=== PATIENT | female | born 1960 | race Caucasian/White ===

== ENCOUNTER 2020-09-18 15:56 | Emergency (ER) | payer BC, SELFPAY ==
--- NOTE | 2020-09-18 16:05 | ED.PSYCH ---
HPI - Psych General Chief Complaint: ETOH/Substance Use Stated Complaint: ETOH,SI Time Seen by Provider: 09/18/20 16:05 Source: patient Mode of arrival: ambulatory Limitations: no limitations and altered mental status (ETOH intoxication) History of Present Illness MD complaint: suicidal ideation, feels depressed and alcohol abuse Onset (ago): hour(s) Duration: intermittent History of same: Yes Relieving factors: none Exacerbating factors: alcohol Context: recent alcohol abuse Associated psychiatric symptoms: depression and suicidal ideation Associated symptoms: denies other symptoms Treatments prior to arrival: none Related Data Allergies Allergy/AdvReac Type Severity Reaction Status Date / Time codeine [CODEINE] Allergy Unknown RASH Unverified 01/15/20 15:40 Penicillins [PENICILLINS] Allergy Unknown RASH Unverified 01/15/20 15:40 Review of Systems Review of Systems: ROS unable to be obtained due to intoxication and patient won't answer questions PMFSH Past Medical History Attestation statement: The following information was validated with the patient. Medical History Alcohol abuse Social History Social History (Updated 09/18/20 @ 16:18 by Tammy Anders DO) Alcohol intake: current Smoking Status: Current every day smoker Advance Directives: No Advance Directives Information Provided: Yes Physical Exam Vital Signs: Vital Signs: Last Vital Signs Temp 97.8 F 09/18/20 16:17 Pulse 92 09/18/20 16:17 Resp 18 09/18/20 16:17 BP 127/70 09/18/20 16:17 Pulse Ox 94 09/18/20 16:17 Body Mass Index 23.0 Appearance: Alert. Oriented X3. ETOH odor, slurred speech Eyes: Pupils equal, round and reactive to light. Atraumatic ENT: Pharynx normal. Neck: Normal inspection. Neck supple. CVS: Normal heart rate and rhythm. Pulses normal. Respiratory: No respiratory distress. Breath sounds normal. Abdomen: Soft and non-tender. Skin: Skin warm and dry. Normal skin color. Normal skin turgor. Extremities: No lower extremity edema. No calf ttp Neuro: Oriented X 3. No motor deficit. No sensory deficit. Psych: no SI/HI but states she made statements cause I was drinking, I do this all the time. Course Course Course Narrative: son is here he lives with her he has no concerns states these claims were made by his sister whom his mother is estranged from and that this was a huge mistake and his mom does not suffer from mental illness and he has no concerns for SI MDM - Psych MDM Narrative Medical decision making narrative: 60 yo female with ETOH use comes in with c/o intoxication and made statements of self harm, denies a plan and does not feel suicidial she states that she has said this before when drinking and was taken out of context, on section 12, at this time will obtain CARE team consult, no signs of trauma likely related to ETOH abuse no prior inpatient no prior attempts adamantly denies SI Lab Data Result diagrams: 09/18/20 17:33 09/18/20 17:33 Labs: Lab Results 09/18/20 09/18/20 09/18/20 Range/Units 17:33 17:33 17:33 WBC 12.6 H (4.8-10.8) X10*3/uL RBC 4.60 (4.20-5.50) X10*6/uL Hgb 14.1 (12.0-16.0) g/dl Hct 42.0 (37-47) % MCV 91.3 (80-98) fL MCH 30.7 (27.0-33.0) pg MCHC 33.6 (31.0-35.0) g/dl RDW 12.8 (11.0-16.0) % Plt Count 321 (160-400) X10*3/uL MPV 9.5 (9.4-12.3) fL Immature Gran % (Auto) 0.4 (0.0-0.4) % Neut % (Auto) 82.7 H (45-73) % Lymph % (Auto) 11.8 L (20-40) % [place] % (Auto) 3.7 (2-11) % Eos % (Auto) 0.6 (0-4) % Baso % (Auto) 0.8 (0-2) % Lymph # (Auto) 1.5 (1.2-4.9) X10*3/uL [place] # (Auto) 0.5 (0.1-1.2) X10*3/uL Eos # (Auto) 0.1 (0.0-0.4) X10*3/uL Baso # (Auto) 0.1 (0.0-0.2) X10*3/uL Abs Immat Gran (auto) 0.05 H (0.00-0.03) X10*3/uL Absolute Neuts (auto) 10.5 H (2.0-8.3) X10*3/uL Absolute Nucleated RBC 0.000 (0.0-0.012) X10*3/uL Nucleated RBC % (auto) 0.0 (0.0-0.2) /100WBC Sodium 142 (135-145) mmol/L Potassium 4.1 (3.3-5.1) mmol/L Chloride 106 (96-108) mmol/L Carbon Dioxide 26 (22-29) mmol/L Anion Gap 14 (12-20) BUN 13 (9-16) mg/dL Creatinine 0.72 (0.5-1.4) mg/dL Estim Creat Clear Calc 58.9 Estimated GFR > 60 Random Glucose 141 H (60-115) mg/dL Calcium 9.2 (8.4-10.2) mg/dL Total Bilirubin 0.4 (0.0-1.0) mg/dL Direct Bilirubin < 0.2 (0.0-0.5) mg/dL AST 22 (5-31) U/L ALT 13 (0-31) U/L Alkaline Phosphatase 91 (39-117) U/L Total Protein 7.5 (6.5-8.0) g/dL Albumin 4.5 (3.5-5.0) g/dL Urine Opiates Screen (Not Detect) Ur Barbiturates Screen (Not Detect) Ur Phencyclidine Scrn (Not Detect) Ur Amphetamines Screen (Not Detect) U Benzodiazepines Scrn (Not Detect) Urine Cocaine Screen (Not Detect) U Marijuana (THC) Screen (Not Detect) Ethyl Alcohol 281 mg/dL 09/18/20 Range/Units 17:33 WBC (4.8-10.8) X10*3/uL RBC (4.20-5.50) X10*6/uL Hgb (12.0-16.0) g/dl Hct (37-47) % MCV (80-98) fL MCH (27.0-33.0) pg MCHC (31.0-35.0) g/dl RDW (11.0-16.0) % Plt Count (160-400) X10*3/uL MPV (9.4-12.3) fL Immature Gran % (Auto) (0.0-0.4) % Neut % (Auto) (45-73) % Lymph % (Auto) (20-40) % [place] % (Auto) (2-11) % Eos % (Auto) (0-4) % Baso % (Auto) (0-2) % Lymph # (Auto) (1.2-4.9) X10*3/uL [place] # (Auto) (0.1-1.2) X10*3/uL Eos # (Auto) (0.0-0.4) X10*3/uL Baso # (Auto) (0.0-0.2) X10*3/uL Abs Immat Gran (auto) (0.00-0.03) X10*3/uL Absolute Neuts (auto) (2.0-8.3) X10*3/uL Absolute Nucleated RBC (0.0-0.012) X10*3/uL Nucleated RBC % (auto) (0.0-0.2) /100WBC Sodium (135-145) mmol/L Potassium (3.3-5.1) mmol/L Chloride (96-108) mmol/L Carbon Dioxide (22-29) mmol/L Anion Gap (12-20) BUN (9-16) mg/dL Creatinine (0.5-1.4) mg/dL Estim Creat Clear Calc Estimated GFR Random Glucose (60-115) mg/dL Calcium (8.4-10.2) mg/dL Total Bilirubin (0.0-1.0) mg/dL Direct Bilirubin (0.0-0.5) mg/dL AST (5-31) U/L ALT (0-31) U/L Alkaline Phosphatase (39-117) U/L Total Protein (6.5-8.0) g/dL Albumin (3.5-5.0) g/dL Urine Opiates Screen Not Detected (Not Detect) Ur Barbiturates Screen Not Detected (Not Detect) Ur Phencyclidine Scrn Not Detected (Not Detect) Ur Amphetamines Screen Not Detected (Not Detect) U Benzodiazepines Scrn Not Detected (Not Detect) Urine Cocaine Screen Not Detected (Not Detect) U Marijuana (THC) Screen Not Detected (Not Detect) Ethyl Alcohol mg/dL Discharge Plan Discharge Clinical Impression: Alcoholic intoxication Qualifiers: Complication of substance-induced condition: uncomplicated Qualified Code(s): F10.920 - Alcohol use, unspecified with intoxication, uncomplicated Patient Disposition: Home, Self-Care Instructions: Abuse of Alcohol (ED) Additional Instructions: return to ED for any worsening symptoms or concerns
[2020-09-18 16:17] VITALS: BP 127/70; BP 139/89; PULSE 76; PULSE 92; RESP 18; TEMP 36.6; O2SAT 94; BMI 23.0
--- NOTE | 2020-09-18 17:09 | PC.NURSE ---
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
[2020-09-18 17:45] LABS: MANUAL DIFF FLAG NO
[2020-09-18 17:52] LABS: Basophils Absolute Auto 0.1 X10*3/uL (0.0-0.2); Basophils Percent Auto 0.8 % (0-2); Eosinophils Absolute Auto 0.1 X10*3/uL (0.0-0.4); Eosinophils Percent Auto 0.6 % (0-4); Hemoglobin 14.1 g/dl (12.0-16.0); Imm Gran Abs Auto 0.05 X10*3/uL (0.00-0.03); Imm Gran Pct Auto 0.4 % (0.0-0.4); Lymphocytes Absolute Auto 1.5 X10*3/uL (1.2-4.9); Lymphocytes Percent Auto 11.8 % (20-40); Mean Corpuscular HGB Conc 33.6 g/dl (31.0-35.0); Mean Corpuscular Hemoglobin 30.7 pg (27.0-33.0); Mean Corpuscular Volume 91.3 fL (80-98); Mean Platelet Volume 9.5 fL (9.4-12.3); Monocytes Absolute Auto 0.5 X10*3/uL (0.1-1.2); Monocytes Percent Auto 3.7 % (2-11); Neutrophils Absolute Auto 10.5 X10*3/uL (2.0-8.3); Neutrophils Percent Auto 82.7 % (45-73); Platelet Count 321 X10*3/uL (160-400); Red Cell Distribution Width 12.8 % (11.0-16.0); White Blood Count 12.6 X10*3/uL (4.8-10.8)
[2020-09-18 18:07] LABS: Amphetamine Screen Urine Not Detected (Not Detect); Barbiturates, Urine Not Detected (Not Detect); Benzodiazepines Screen Urine Not Detected (Not Detect); Cannabinoid Screen Urine Not Detected (Not Detect); Cocaine Screen Urine Not Detected (Not Detect); Opiate Screen Urine Not Detected (Not Detect); Phencyclidine Screen Urine Not Detected (Not Detect)
[2020-09-18 18:08] LABS: Ethanol 281 mg/dL
[2020-09-18 18:11] LABS: Alanine Aminotransferase 13 U/L (0-31); Albumin Level 4.5 g/dL (3.5-5.0); Alkaline Phosphatase 91 U/L (39-117); Anion Gap 14 (12-20); Aspartate Amino Transferase 22 U/L (5-31); Bilirubin Direct < 0.2 mg/dL (0.0-0.5); Bilirubin Total 0.4 mg/dL (0.0-1.0); Blood Urea Nitrogen 13 mg/dL (9-16); Calcium 9.2 mg/dL (8.4-10.2); Carbon Dioxide 26 mmol/L (22-29); Chloride 106 mmol/L (96-108); Creatinine Clr Calc Pharmacy 58.9; Estimated Glomerular Filt Rate > 60; Glucose Random 141 mg/dL (60-115); Potassium 4.1 mmol/L (3.3-5.1); Sodium 142 mmol/L (135-145); Total Protein 7.5 g/dL (6.5-8.0)
== END 2020-09-18 19:14 | disposition home or self-care (01) ==
PROVIDERS: Emergency Provider Emergency Medicine
DX: F10.120 Alcohol abuse with intoxication, uncomplicated (principal); Y90.8 Blood alcohol level of 240 mg/100 ml or more; R45.851 Suicidal ideations; F32.9 Major depressive disorder, single episode, unspecified; F17.210 Nicotine dependence, cigarettes, uncomplicated
CPT/HCPCS: 36415; 80048; 80076; 80307; 80320; 85025; 99284

== ENCOUNTER 2022-04-25 18:16 | Day surgery (SDC) | payer BC, SELFPAY ==
--- NOTE | ~2022-04-25 | US_ITS ---
EXAMINATION: US PELVIS CLINICAL INFORMATION: Right lower quadrant pain. Question cyst or torsion COMPARISON: None TECHNIQUE: Ultrasound of the pelvis is performed using both transabdominal and transvaginal transducers along with Doppler. Transvaginal imaging is performed due to inadequate visualization transabdominally. FINDINGS: Uterus: The uterus is retroverted and measures 4.5 x 3 x 3.2 cm. The double wall endometrial thickness is 0.2 mm. The uterus is smooth in contour and has normal myometrial echogenicity. No visible fibroid. Adnexa: Both ovaries are visualized. There is normal color flow to the adnexa. There is no ovarian torsion. There is no pelvic ascites or fluid collection. Right ovary measures 2 x 1.2 x 0.9 cm, volume 1.1 mL. Dopplerable arterial flow. No venous flow demonstrated. Left ovary measures 1.2 x 0.7 x 0.7 cm, volume 0.3 mL.Normal dopplerable venous flow. Arterial flow not demonstrated. US/US pelvic ovarian doppler IMPRESSION: 1. No evidence of ovarian torsion. No adnexal cyst/mass. 2. Unremarkable uterus. 3. Thin endometrial stripe measuring 2 mm in thickness. 4. No pelvic free fluid.
--- NOTE | ~2022-04-25 | US_ITS ---
EXAMINATION: US PELVIS CLINICAL INFORMATION: Right lower quadrant pain. Question cyst or torsion COMPARISON: None TECHNIQUE: Ultrasound of the pelvis is performed using both transabdominal and transvaginal transducers along with Doppler. Transvaginal imaging is performed due to inadequate visualization transabdominally. FINDINGS: Uterus: The uterus is retroverted and measures 4.5 x 3 x 3.2 cm. The double wall endometrial thickness is 0.2 mm. The uterus is smooth in contour and has normal myometrial echogenicity. No visible fibroid. Adnexa: Both ovaries are visualized. There is normal color flow to the adnexa. There is no ovarian torsion. There is no pelvic ascites or fluid collection. Right ovary measures 2 x 1.2 x 0.9 cm, volume 1.1 mL. Dopplerable arterial flow. No venous flow demonstrated. Left ovary measures 1.2 x 0.7 x 0.7 cm, volume 0.3 mL.Normal dopplerable venous flow. Arterial flow not demonstrated. US/US pelvic and transvaginal IMPRESSION: 1. No evidence of ovarian torsion. No adnexal cyst/mass. 2. Unremarkable uterus. 3. Thin endometrial stripe measuring 2 mm in thickness. 4. No pelvic free fluid.
--- NOTE | ~2022-04-25 | XR_ITS ---
EXAMINATION: XR CHEST CLINICAL INFORMATION: Preop COMPARISON: None TECHNIQUE: Frontal view of the chest was obtained. FINDINGS: Normal symmetric lung volumes. No parenchymal consolidation. Biapical pleural-parenchymal scarring. No pleural effusion. No pneumothorax. Cardiomediastinal silhouette and pulmonary vascularity are within normal limits. Mildly angulated fracture of the right proximal humeral diaphysis, incompletely imaged. XR/XR chest 1V IMPRESSION: No acute pulmonary abnormalities. Mildly angulated fracture or fracture deformity of the proximal right humerus, incompletely characterized.
--- NOTE | ~2022-04-25 | CT_ITS ---
EXAMINATION: CT ABDOMEN AND PELVIS WITH CONTRAST CLINICAL INFORMATION: Right lower quadrant pain COMPARISON: 03/22/2009 TECHNIQUE: Multidetector volumetric images were obtained from the superior aspect of the liver through the pubic symphysis following administration 85 mL of Omnipaque 350 intravenous contrast. Sagittal and coronal reformatted images were obtained on the technologist's workstation. Oral contrast: No This CT examination was performed using dose optimization techniques as appropriate, variously including the following: *Automated exposure control *Adjustment of mA and/or kV according to patient size (this includes techniques or standardized protocols for targeted exams where dose is matched to indication/reason for exam; i.e. extremities or head) *Use of iterative reconstruction technique DLP: 302 mGy-cm FINDINGS: LUNG BASES: Mild emphysema. LIVER, GALLBLADDER, AND BILIARY TREE: The liver is normal in size, shape, and attenuation. No focal hepatic lesion or biliary ductal dilatation is present. The gallbladder is unremarkable with no evidence of radiopaque gallstones, gallbladder wall thickening, or obvious pericholecystic inflammatory changes. PANCREAS: Prominent duodenal diverticulum protrudes into the pancreatic head. This may be causing a degree of compression of the distal main pancreatic duct with resultant upstream dilatation measuring up to 6 mm. No pancreatic mass or inflammation. SPLEEN: Unremarkable. ADRENAL GLANDS: Unremarkable. KIDNEYS AND URETERS: The kidneys are normal in size, shape, and attenuation. No hydronephrosis, hydroureter, or calculi seen. There are couple bilateral simple renal cysts. No follow-up required. No perinephric stranding. BLADDER: Unremarkable. GASTROINTESTINAL TRACT /ABDOMINAL WALL:: There is a right femoral hernia containing a knuckle of small bowel with associated mild upstream dilatation of the single loop of small bowel. Small amount of fluid inferior to the herniated loop of small bowel. Stomach and colon unremarkable. Normal appendix. LYMPH NODES: Normal. VASCULAR: Unremarkable. PELVIC VISCERA: Unremarkable. OSSEOUS STRUCTURES: No acute or suspicious osseous abnormalities. CT/CT abdomen pelvis w IV con IMPRESSION: * Right femoral hernia containing a knuckle of small bowel with associated small bowel obstruction. While the majority of the bowel is not dilated at this time, this may just represent an early high-grade small bowel obstruction. Surgical consultation recommended. * Mild emphysema. * Mild segmental dilatation of the main pancreatic duct, likely related to mass effect from a prominent duodenal diverticulum protruding into the pancreatic head. No pancreatic mass or inflammation. Fleischner guidelines were followed.
[2022-04-25 19:33] VITALS: BP 153/114; PULSE 105; RESP 18; TEMP 36.9; O2SAT 96; BMI 20.1
--- NOTE | 2022-04-25 19:35 | ED_ITS ---
HPI - General Adult General Chief complaint: Abdominal Pain <EUGENIE Ricks - Last Filed: 04/25/22 19:36> Stated complaint: Lower abdominal sharp pain <EUGENIE Ricks - Last Filed: 04/25/22 19:36> Time Seen by Provider: 04/26/22 00:27 <EUGENIE Ricks - Last Filed: 04/25/22 19:36> Source: patient <Enio Cain MD - Last Filed: 04/26/22 02:15> Mode of arrival: ambulatory <Enio Cain MD - Last Filed: 04/26/22 02:15> Limitations: no limitations <Enio Cain MD - Last Filed: 04/26/22 02:15> History of Present Illness HPI narrative: Patient with no significant past medical history status post multiple C- sections was driving suddenly patient coughed and noticed pain in the right groin area with swelling associated with nausea. Feels slightly bloated patient last meal was at noon time. No history of hernia in the past no fever or chills <Enio Cain MD - Last Filed: 04/26/22 02:15> Related Data Home medications: Home Medications Medication Instructions Recorded Confirmed ibuprofen 200 mg capsule 800 mg PO Q6H 03/23/21 Previous Rx's Medication Instructions Recorded cyclobenzaprine 5 mg tablet 5 mg PO TID PRN muscle spasm #21 03/23/21 tabs meloxicam 15 mg tablet 15 mg PO DAILY #7 tabs 03/23/21 <EUGENIE Ricks - Last Filed: 04/25/22 19:36> Allergies/adverse reactions: Allergies Allergy/AdvReac Type Severity Reaction Status Date / Time codeine [CODEINE] Allergy Unknown RASH Verified 03/23/21 10:58 Penicillins [PENICILLINS] Allergy Unknown RASH Verified 03/23/21 10:58 <EUGENIE Ricks - Last Filed: 04/25/22 19:36> Review of Systems Review of Systems: Yes all other systems are reviewed and are negative <Enio Cain MD - Last Filed: 04/26/22 02:15> PMFSH Past Medical History Medical History: Medical History Alcohol abuse <EUGENIE Ricks - Last Filed: 04/25/22 19:36> Social History Social History: Social History Alcohol intake: current Patient Tobacco Use Status: Current everyday Tobacco user Advance Directives: No Advance Directives Information Provided: No <EUGENIE Ricks - Last Filed: 04/25/22 19:36> Physical Exam ED Vital Signs: Vital Signs - 24 hr 04/25/22 19:33 04/26/22 00:07 Temperature 98.4 F 98.1 F Pulse Rate 105 H 78 Respiratory Rate 18 20 Blood Pressure 153/114 H 140/74 H Pulse Oximetry 96 96 Oxygen Delivery Method Room Air Room Air BMI result Body Mass Index 20.1 <EUGENIE Ricks - Last Filed: 04/25/22 19:36> Vital Signs - 24 hr 04/25/22 19:33 04/26/22 00:07 Temperature 98.4 F 98.1 F Pulse Rate 105 H 78 Respiratory Rate 18 20 Blood Pressure 153/114 H 140/74 H Pulse Oximetry 96 96 Oxygen Delivery Method Room Air Room Air BMI result Body Mass Index 20.1 <Enio Cain MD - Last Filed: 04/26/22 02:15> Appearance: Alert. Oriented X3. In mild distress Eyes: No pallor icterus ENT: Pharynx normal. Oral Mucosa moist Neck: Normal inspection. Neck supple. CVS: Normal heart rate and rhythm. Pulses normal. Respiratory: No respiratory distress. Equal air entry bilateral, no wheezing/rales/rhonchi Abdomen: Soft small 2 x 2 cm swelling at right femoral area tender unable to reduce Bowel sounds are present, diffuse tenderness lower abdomen no rebound tenderness no CVA tenderness Skin: Skin warm and dry. Normal skin color. Normal skin turgor. Extremities: No lower extremity edema. No calf tenderness Neuro: Oriented X 3. No motor deficit. <Enio Cain MD - Last Filed: 04/26/22 02:15> Course Course Course Narrative: 193 61 year old female presents w/ sudden onset sharp RLQ/R sided pelvic pain Pe RLQ pain Plan- pelvic,ua, labs. <EUGENIE Ricks - Last Filed: 04/25/22 19:36> Medications Administered Generic Name Dose Route Start Last Admin Trade Name Freq PRN Reason Stop Dose Admin Sodium Chloride 1,000 mls @ 999 mls/hr 04/26/22 01:39 04/26/22 02:05 Ns IV 04/26/22 02:39 999 mls/hr .Q1H1M ONE Administration Discontinued Medications Generic Name Dose Route Start Last Admin Trade Name Freq PRN Reason Stop Dose Admin Iohexol 65 ml 04/25/22 19:48 04/25/22 19:49 Iohexol 350 Mg/Ml 100 Ml Infus..Btl IV 04/25/22 19:49 65 ml ONCE ONE Administration Iohexol 85 ml 04/26/22 00:37 04/26/22 00:37 Iohexol 350 Mg/Ml 100 Ml Infus..Btl IV 04/26/22 00:38 85 ml ONCE ONE Administration Morphine Sulfate 4 mg 04/26/22 01:39 04/26/22 02:02 Morphine Sulfate 4 Mg/Ml Cartridge IVPUSH 04/26/22 01:40 4 mg ONCE ONE Administration Protocol Ondansetron HCl 4 mg 04/26/22 01:39 04/26/22 02:02 Ondansetron Hcl 4 Mg/2 Ml Vial IVPUSH 04/26/22 01:40 4 mg ONCE ONE Administration <EUGENIE Ricks - Last Filed: 04/25/22 19:36> Medications Administered Generic Name Dose Route Start Last Admin Trade Name Freq PRN Reason Stop Dose Admin Sodium Chloride 1,000 mls @ 999 mls/hr 04/26/22 01:39 04/26/22 02:05 Ns IV 04/26/22 02:39 999 mls/hr .Q1H1M ONE Administration Discontinued Medications Generic Name Dose Route Start Last Admin Trade Name Freq PRN Reason Stop Dose Admin Iohexol 65 ml 04/25/22 19:48 04/25/22 19:49 Iohexol 350 Mg/Ml 100 Ml Infus..Btl IV 04/25/22 19:49 65 ml ONCE ONE Administration Iohexol 85 ml 04/26/22 00:37 04/26/22 00:37 Iohexol 350 Mg/Ml 100 Ml Infus..Btl IV 04/26/22 00:38 85 ml ONCE ONE Administration Morphine Sulfate 4 mg 04/26/22 01:39 04/26/22 02:02 Morphine Sulfate 4 Mg/Ml Cartridge IVPUSH 04/26/22 01:40 4 mg ONCE ONE Administration Protocol Ondansetron HCl 4 mg 04/26/22 01:39 04/26/22 02:02 Ondansetron Hcl 4 Mg/2 Ml Vial IVPUSH 04/26/22 01:40 4 mg ONCE ONE Administration <Enio Cain MD - Last Filed: 04/26/22 02:15> Medical Decision Making Medical Decision Making [facility] Narrative: Ct scan: *? Right femoral hernia containing a knuckle of small bowel with associated small bowel obstruction. While the majority of the bowel is not dilated at this time, this may just represent an early high-grade small bowel obstruction. Surgical consultation recommended. *? Mild emphysema. *? Mild segmental dilatation of the main pancreatic duct, likely related to mass effect from a prominent duodenal diverticulum protruding into the pancreatic head. No pancreatic mass or inflammation. Patient with right femoral hernia with small bowel loop causing the SBO. Will admit patient for surgery. Case discussed Dr. Woodson <Enio Cain MD - Last Filed: 04/26/22 02:15> Differential Diagnosis Femoral/inguinal hernia/appendicitis/diverticulitis/SBO <Enio Cain MD - Last Filed: 04/26/22 02:15> Lab Data [facility] Lab Attestation statement: I reviewed the patient's lab results. <Enio Cain MD - Last Filed: 04/26/22 02:15> Result Diagrams: : 04/25/22 20:18 04/25/22 20:18 <EUGENIE Ricks - Last Filed: 04/25/22 19:36> Labs: Lab Results 04/25/22 04/25/22 04/26/22 Range/Units 20:18 20:18 00:24 WBC 9.7 (4.8-10.8) X10*3/uL RBC 4.56 (4.20-5.50) X10*6/uL Hgb 14.0 (12.0-16.0) g/dl Hct 41.5 (37.0-47.0) % MCV 91.0 (80.0-98.0) fL MCH 30.7 (27.0-33.0) pg MCHC 33.7 (31.0-35.0) g/dl RDW 12.4 (11.0-16.0) % Plt Count 304 (160-400) X10*3/uL MPV 9.5 (9.4-12.3) fL Immature Gran % (Auto) 0.2 (0.0-0.4) % Neut % (Auto) 71.5 (45-73) % Lymph % (Auto) 20.3 (20-40) % [place] % (Auto) 6.0 (2-11) % Eos % (Auto) 1.3 (0-4) % Baso % (Auto) 0.7 (0-2) % Lymph # (Auto) 2.0 (1.2-4.9) X10*3/uL [place] # (Auto) 0.6 (0.1-1.2) X10*3/uL Eos # (Auto) 0.1 (0.0-0.4) X10*3/uL Baso # (Auto) 0.1 (0.0-0.2) X10*3/uL Abs Immat Gran (auto) 0.02 (0.00-0.03) X10*3/uL Absolute Neuts (auto) 7.0 (2.0-8.3) x10*3/uL Absolute Nucleated RBC 0.000 (0.0-0.012) X10*3/uL Nucleated RBC % (auto) 0.0 (0.0-0.2) /100WBC Sodium 139 (135-145) mmol/L Potassium 4.1 (3.3-5.1) mmol/L Chloride 103 (96-108) mmol/L Carbon Dioxide 26 (22-29) mmol/L Anion Gap 14 (12-20) BUN 19 H (9-16) mg/dL Creatinine 0.80 (0.5-1.4) mg/dL Estim Creat Clear Calc 57.4 Estimated GFR > 60 Random Glucose 98 (60-115) mg/dL Calcium 9.6 (8.4-10.2) mg/dL Magnesium 1.7 (1.6-2.6) mg/dL Total Bilirubin 0.4 (0.0-1.0) mg/dL AST 24 (5-31) U/L ALT 14 (0-31) U/L Alkaline Phosphatase 85 (39-117) U/L Total Protein 7.3 (6.5-8.0) g/dL Albumin 4.6 (3.5-5.0) g/dL Lipase 50 (8-78) U/L Urine Color Yellow Urine Appearance Clear Urine pH 5.0 (5.0-9.0) Ur Specific [place] 1.020 (1.005-1.025) Urine Protein Negative (Neg-Trace) mg/dL Urine Glucose (UA) Negative (Negative) mg/dL Urine Ketones 15 (Negative) mg/dL Urine Blood Trace H (Negative) Urine Nitrite Negative (Negative) Ur Leukocyte Esterase Small (1+) H (Negative) Urine RBC 0-2 (0-2) /HPF Urine WBC 0-5 (0-5) /HPF Ur Squamous Epith Cells 0-2 (0-2) /HPF Urine Bacteria None Seen (None Seen) Hyaline Casts 0-2 (0-2) /LPF <EUGENIE Ricks - Last Filed: 04/25/22 19:36> Lab Results 04/25/22 04/25/22 04/26/22 Range/Units 20:18 20:18 00:24 WBC 9.7 (4.8-10.8) X10*3/uL RBC 4.56 (4.20-5.50) X10*6/uL Hgb 14.0 (12.0-16.0) g/dl Hct 41.5 (37.0-47.0) % MCV 91.0 (80.0-98.0) fL MCH 30.7 (27.0-33.0) pg MCHC 33.7 (31.0-35.0) g/dl RDW 12.4 (11.0-16.0) % Plt Count 304 (160-400) X10*3/uL MPV 9.5 (9.4-12.3) fL Immature Gran % (Auto) 0.2 (0.0-0.4) % Neut % (Auto) 71.5 (45-73) % Lymph % (Auto) 20.3 (20-40) % [place] % (Auto) 6.0 (2-11) % Eos % (Auto) 1.3 (0-4) % Baso % (Auto) 0.7 (0-2) % Lymph # (Auto) 2.0 (1.2-4.9) X10*3/uL [place] # (Auto) 0.6 (0.1-1.2) X10*3/uL Eos # (Auto) 0.1 (0.0-0.4) X10*3/uL Baso # (Auto) 0.1 (0.0-0.2) X10*3/uL Abs Immat Gran (auto) 0.02 (0.00-0.03) X10*3/uL Absolute Neuts (auto) 7.0 (2.0-8.3) x10*3/uL Absolute Nucleated RBC 0.000 (0.0-0.012) X10*3/uL Nucleated RBC % (auto) 0.0 (0.0-0.2) /100WBC Sodium 139 (135-145) mmol/L Potassium 4.1 (3.3-5.1) mmol/L Chloride 103 (96-108) mmol/L Carbon Dioxide 26 (22-29) mmol/L Anion Gap 14 (12-20) BUN 19 H (9-16) mg/dL Creatinine 0.80 (0.5-1.4) mg/dL Estim Creat Clear Calc 57.4 Estimated GFR > 60 Random Glucose 98 (60-115) mg/dL Calcium 9.6 (8.4-10.2) mg/dL Magnesium 1.7 (1.6-2.6) mg/dL Total Bilirubin 0.4 (0.0-1.0) mg/dL AST 24 (5-31) U/L ALT 14 (0-31) U/L Alkaline Phosphatase 85 (39-117) U/L Total Protein 7.3 (6.5-8.0) g/dL Albumin 4.6 (3.5-5.0) g/dL Lipase 50 (8-78) U/L Urine Color Yellow Urine Appearance Clear Urine pH 5.0 (5.0-9.0) Ur Specific [place] 1.020 (1.005-1.025) Urine Protein Negative (Neg-Trace) mg/dL Urine Glucose (UA) Negative (Negative) mg/dL Urine Ketones 15 (Negative) mg/dL Urine Blood Trace H (Negative) Urine Nitrite Negative (Negative) Ur Leukocyte Esterase Small (1+) H (Negative) Urine RBC 0-2 (0-2) /HPF Urine WBC 0-5 (0-5) /HPF Ur Squamous Epith Cells 0-2 (0-2) /HPF Urine Bacteria None Seen (None Seen) Hyaline Casts 0-2 (0-2) /LPF <Enio Cain MD - Last Filed: 04/26/22 02:15> Discharge Plan Discharge Clinical Impression: Femoral hernia of right side with obstruction <EUGENIE Ricks - Last Filed: 04/25/22 19:36> Patient Disposition: Admitted As Inpatient <EUGENIE Ricks - Last Filed: 04/25/22 19:36>
[2022-04-25] MEDS: iohexoL 350 MG/ML 100 ML INFUS..BTL 65 ML IV (19:49)
[2022-04-25 20:45] LABS: MANUAL DIFF FLAG NO
[2022-04-25 20:47] LABS: Basophils Absolute Auto 0.1 X10*3/uL (0.0-0.2); Basophils Percent Auto 0.7 % (0-2); Eosinophils Absolute Auto 0.1 X10*3/uL (0.0-0.4); Eosinophils Percent Auto 1.3 % (0-4); Hematocrit 41.5 % (37.0-47.0); Imm Gran Abs Auto 0.02 X10*3/uL (0.00-0.03); Imm Gran Pct Auto 0.2 % (0.0-0.4); Lymphocytes Percent Auto 20.3 % (20-40); Mean Corpuscular HGB Conc 33.7 g/dl (31.0-35.0); Mean Corpuscular Hemoglobin 30.7 pg (27.0-33.0); Mean Platelet Volume 9.5 fL (9.4-12.3); Monocytes Absolute Auto 0.6 X10*3/uL (0.1-1.2); Neutrophils Percent Auto 71.5 % (45-73); Platelet Count 304 X10*3/uL (160-400); Red Blood Count 4.56 X10*6/uL (4.20-5.50); Red Cell Distribution Width 12.4 % (11.0-16.0); White Blood Count 9.7 X10*3/uL (4.8-10.8)
[2022-04-25 21:13] LABS: Alanine Aminotransferase 14 U/L (0-31); Albumin Level 4.6 g/dL (3.5-5.0); Alkaline Phosphatase 85 U/L (39-117); Anion Gap 14 (12-20); Aspartate Amino Transferase 24 U/L (5-31); Bilirubin Total 0.4 mg/dL (0.0-1.0); Blood Urea Nitrogen 19 mg/dL (9-16); Calcium 9.6 mg/dL (8.4-10.2); Carbon Dioxide 26 mmol/L (22-29); Chloride 103 mmol/L (96-108); Creatinine Clr Calc Pharmacy 57.4; Estimated Glomerular Filt Rate > 60; Glucose Random 98 mg/dL (60-115); Lipase 50 U/L (8-78); Magnesium 1.7 mg/dL (1.6-2.6); Potassium 4.1 mmol/L (3.3-5.1); Sodium 139 mmol/L (135-145); Total Protein 7.3 g/dL (6.5-8.0)
[2022-04-26] VITALS (18 sets, daily range): BP systolic 86–149; BP diastolic 35–78; PULSE 58–79; RESP 12–20; TEMP 36.1–37.1; O2SAT 94–100
[2022-04-26 00:30] LABS: Appearance Urine Clear; Color Urine Yellow; Glucose Urine UA Negative (Negative); Leukocyte Esterase Urine Small (1+) (Negative); Nitrite Urine Negative (Negative); UMIC TRIGGER UACC YES; Urine Blood Trace (Negative); Urine Ketones 15 mg/dL (Negative); Urine Protein Negative (Neg-Trace)
[2022-04-26] MEDS: iohexoL 350 MG/ML 100 ML INFUS..BTL 85 ML IV (00:37)
[2022-04-26 00:39] LABS: Bacteria Urine None Seen (None Seen); Hyaline Casts Urine 0-2 /LPF (0-2); RBC Urine 0-2 /HPF (0-2); Squamous Epithelial Cell Urine 0-2 /HPF (0-2); UACC Culture Trigger YES; WBC Urine 0-5 /HPF (0-5)
[2022-04-26] MEDS: ondansetron HCL 4 MG/2 ML VIAL IVPUSH (02:02)
[2022-04-26] MEDS: Morphine Sulfate 4 MG/ML CARTRIDGE IVPUSH (02:02)
--- NOTE | 2022-04-26 02:03 | ECG_ITS ---
Test Reason : ABD PAIN Blood Pressure : / mmHG Vent. Rate : 064 BPM Atrial Rate : 064 BPM P-R Int : 110 ms QRS Dur : 068 ms QT Int : 408 ms P-R-T Axes : 077 062 060 degrees QTc Int : 420 ms Sinus rhythm with short FL Otherwise normal ECG When compared with ECG of 05-AUG-2003 15:44, No significant change was found Referred By: Enio Cain Electronically Signed By:DEANN ZARATE MD
[2022-04-26] MEDS: 0.9 % Sodium Chloride 1,000 ML 999 ML IV ×2 (02:05→06:45)
[2022-04-26 02:33] LABS: Lactic Acid 0.8 mmol/L (0.5-2.0)
[2022-04-26 02:42] LABS: COVID-19 Test Negative (Negative); IDNOW Serial# BCCEAD1C
[2022-04-26 02:43] LABS: INTERNATIONAL NORM RATIO 0.9 (0.9-1.1); Prothrombin Time 9.8 SEC (10.0-13.1)
[2022-04-26 02:46] LABS: Partial Thromboplastin Time 29.6 SEC (26.0-36.4)
--- NOTE | 2022-04-26 03:45 | PC.NURSE ---
this rn assumed care of pt @ 0348. pt calm and cooperative. pt's daughter at bedside
[2022-04-26] MEDS: Dextrose 5 % and Lactated Ring 1,000 ML 125 ML IVCONT (03:59)
--- NOTE | 2022-04-26 05:05 | PC.NURSE ---
this rn assisted pt in using the rest room. pt ambulated with 1 assist. this rn medicated pt according to mar @ [id number]. pt's daughter at bedside at this time
--- NOTE | 2022-04-26 06:38 | PC.NURSE ---
this rn was informed by registered medical transcriptionist of low bp. automatic bp 86/49, manual bp taken by this rn 92/48. dr gamez notified of this awaiting new orders
--- NOTE | 2022-04-26 07:11 | PC.NURSE ---
dr thompson order bolus of NS. this rn confirmed with md regarding current order for d5lr. per md hold d5lr until bolus ns has been completed. pt medicated according to mar
--- NOTE | 2022-04-26 07:41 | P.HPGS_ITS ---
History of Present Illness History of Present Illness Date of Service: 04/26/22 Chief complaint: SBO, femoral hernia Narrative: Lucinda Bustillo is a 61 year old female presenting with a painful lump in the right groin which began yesterday while coughing. She soon after noted pain and a new lump in the right groin. She denies a previous history of inguinal hernias but does report a hernia in the left upper quadrant. She noted nausea without vomiting after the onset of the lump. Workup in ED revealed a right femoral hernia containing small bowel. Review of Systems Review of Systems: Yes all other systems are reviewed and are negative Constitutional: Constitutional: Denies chills, Denies fever(s), Denies headache(s), Denies poor appetite and Denies weakness ENT: Denies headache(s) Cardiovascular: Cardiovascular: Denies chest pain, Denies irregular heart r hythm, Denies palpitations and Denies dyspnea Respiratory: Respiratory: Denies cough, Denies excessive phlegm production and Denies dyspnea Gastrointestinal: Gastrointestinal: Reports abdominal pain, Reports bloating, Denies change in bowel habits, Denies constipation, Denies heartburn, Denies diarrhea, Reports nausea and Denies vomiting Genitourinary: Genitourinary: Denies urinary frequency Musculoskeletal: Musculoskeletal: Denies back pain, Denies muscle weakness and Denies numbness Integumentary/Breasts: Skin/Breast: Denies changing lesions and Denies unusual bruising Neurologic: Denies headache(s), Denies numbness, Denies paresthesias and Denies weakness Psychiatric: Psychiatric: Denies anxiety and Denies depression Endocrine: Endocrine: Denies palpitations Hematologic/Lymphatic: Hematologic/Lymphatic: Denies lymphadenopathy PMFSH Past Medical History Medical History Alcohol abuse Social History Social History Alcohol intake: current Alcohol intake frequency: 0-2 drinks per day Patient Tobacco Use Status: Current everyday Tobacco user Meds Allergies Allergy/AdvReac Type Severity Reaction Status Date / Time codeine [CODEINE] Allergy Unknown RASH Verified 03/23/21 10:58 Penicillins [PENICILLINS] Allergy Unknown RASH Verified 03/23/21 10:58 Active Medications: Current Medications Acetaminophen (Acetaminophen 325 Mg Tablet) 650 mg PO QID PRN PRN Reason: headache, temp > 101 Hydromorphone HCl (Hydromorphone Hcl 0.5 Mg/0.5 Ml Syringe) 0.5 mg IVPUSH Q3H PRN; Protocol PRN Reason: Pain, Severe (Pain Scale 7-10) Dextrose/Lactated Ringer's (D5lr) 1,000 mls @ 125 mls/hr IVCONT .Q8H [facility] Last Infusion: 04/26/22 07:24 Dose: 0 mls/hr Sodium Chloride (Ns) 1,000 mls @ 999 mls/hr IV .Q1H1M [facility] Stop: 04/26/22 07:45 Last Admin: 04/26/22 06:45 Dose: 999 mls/hr Ondansetron HCl (Ondansetron Hcl 4 Mg/2 Ml Vial) 4 mg IVPUSH QID PRN PRN Reason: Nausea Oxycodone HCl (Oxycodone Hcl Immed Release 5 Mg Tablet) 5 mg PO Q6H PRN PRN Reason: Pain, Moderate (Pain Scale 4-6 Sodium Chloride (0.9 % Sodium Chloride Flush 3 Ml Syringe) 3 ml IVFLUSH QSHIFT [facility] Zolpidem Tartrate (Zolpidem Tartrate 5 Mg Tablet) 5 mg PO BEDTIME PRN PRN Reason: Insomnia Home Medications Medication Instructions Recorded Confirmed Last Taken Type ferrous sulfate 325 mg (65 mg 325 mg PO QWEEK PRN discomfort 04/26/22 04/26/22 Unknown History iron) tablet ibuprofen 200 mg tablet 400 mg PO BID pain 04/26/22 04/26/22 04/25/22 History ibuprofen 200 mg tablet 400 mg PO DAILY@1500 PRN Pain 04/26/22 04/26/22 Unknown History multivitamin 1 tab PO DAILY 04/26/22 04/26/22 Unknown History Physical Exam Vital Signs: Vital Signs: Last Vital Signs Temp 98.1 F 04/26/22 07:33 Pulse 63 04/26/22 07:33 Resp 14 04/26/22 07:33 BP 99/44 L 04/26/22 07:33 Pulse Ox 94 04/26/22 07:33 O2 Del Method 04/26/22 07:33 BMI result Body Mass Index 20.1 Const: General: cooperative and no acute distress Nutritional Appearance: well nourished Orientation/consciousness: patient oriented x3 Limitations: no limitations HEENT: Head: Yes normocephalic and Yes atraumatic Ears: hearing grossly normal bilaterally Resp: Effort & Inspection: normal respiratory effort, no audible wheezes, no cough and no respiratory distress Cardio: Jugular venous distension: no JVD GI: Inspection: Yes normal to inspection Palpation (GI): Soft to palpation, Tenderness to palpation present (GI) (right groin) and Hernia present femoral on the right Percussion: Yes normal to percussion Auscultation: normal bowel sounds Rectal Exam - Female: deferred Skin: Other: Warm, dry, no rash Neuro: General: patient oriented x3 Extrem: General: Yes no clubbing, cyanosis or edema Results Results Labs: Short CBC 04/25/22 Range/Units 20:18 WBC 9.7 (4.8-10.8) X10*3/uL Hgb 14.0 (12.0-16.0) g/dl Hct 41.5 (37.0-47.0) % Plt Count 304 (160-400) X10*3/uL BMP 04/25/22 20:18 Sodium 139 Potassium 4.1 Chloride 103 Carbon Dioxide 26 BUN 19 H Creatinine 0.80 Calcium 9.6 Liver Function 04/25/22 Range/Units 20:18 Total Bilirubin 0.4 (0.0-1.0) mg/dL AST 24 (5-31) U/L ALT 14 (0-31) U/L Alkaline Phosphatase 85 (39-117) U/L Albumin 4.6 (3.5-5.0) g/dL Urine 04/26/22 Range/Units 00:24 Urine Color Yellow Urine Appearance Clear Urine pH 5.0 (5.0-9.0) Ur Specific [place] 1.020 (1.005-1.025) Urine Protein Negative (Neg-Trace) mg/dL Urine Glucose (UA) Negative (Negative) mg/dL Assessment and Plan (1) Femoral hernia of right side with obstruction: Status: Acute Plan Patient presents with an incarcerated right femoral hernia which will require a repair possibly with mesh. I reviewed the procedure, alternatives and risks associated with the procedure and she consents to a repair of the rught femoral hernia possibly with mesh. Time Spent With Patient Time: Total time managing care of this patient today ____ minutes. Quality Stroke Does the patient have a stroke diagnosis?: No VTE Prior VTE?: No VTE Risk Level:: Surgical - moderate VTE Device Contraindication: N/A - Device Ordered VTE Drug Contraindication: Treatment Not Indicated Procedures Date of Service Date of Service: 04/26/22
--- NOTE | 2022-04-26 07:54 | PHA.MEDREC ---
Pharmacy Consult ? Medication Reconciliation Pharmacy has completed the medication reconciliation. Patient reports taking ibuprofen daily.
--- NOTE | 2022-04-26 08:30 | PC.NURSE ---
Patients B/P 87/42 after ambulating to bathroom , symptomatic reporting dizziness and lightheadedness . Normal Saline put on pressure bag .contacted Dr. Woodson made aware , requested to contact Dr. Arellano for consult . patient aware of plan of care .
--- NOTE | 2022-04-26 08:39 | PC.NURSE ---
Report given to CORRY Israel at [facility] . patient aware of plan of care .
[2022-04-26] MEDS: 0.9 % Sodium Chloride 1,000 ML 999 ML IVCONT (09:51)
--- NOTE | 2022-04-26 10:04 | P.PNIM_ITS ---
Subjective Subjective Date of Service: 04/26/22 Interval History: Asked see patient secondary to relative hypotension prior to surgery. Patient sitting comfortably in bed asymptomatic Review of Systems Denies chest pain Denies shortness of breath Denies nausea vomiting diarrhea Denies fever chills Physical Exam Vital Signs: Vital Signs: Last Vital Signs Temp 97.0 F 04/26/22 09:52 Pulse 59 04/26/22 09:52 Resp 18 04/26/22 09:52 BP 113/54 L 04/26/22 09:52 Pulse Ox 96 04/26/22 09:52 O2 Del Method 04/26/22 09:52 BMI result Body Mass Index 20.1 Const: Other: Awake alert oriented x3 no acute distress HEENT: Other: Membranes moist Resp: Other: Diminished at bases with scattered coarse rhonchi that clear with cough Cardio: Other: No S4; positive S1-S2; no S3 murmurs rubs or gallops GI: Other: Mild tenderness right lower quadrant. Bowel sounds x4 quads Extrem: Other: No edema bilaterally Objective Data Active Medications Acetaminophen (Acetaminophen 325 Mg Tablet) 650 mg PO QID PRN PRN Reason: headache, temp > 101 Hydromorphone HCl (Hydromorphone Hcl 0.5 Mg/0.5 Ml Syringe) 0.5 mg IVPUSH Q3H PRN; Protocol PRN Reason: Pain, Severe (Pain Scale 7-10) Dextrose/Lactated Ringer's (D5lr) 1,000 mls @ 125 mls/hr IVCONT .Q8H [facility] Last Infusion: 04/26/22 07:24 Dose: 0 mls/hr Documented By: KEDAR Sodium Chloride (Ns) 1,000 mls @ 999 mls/hr IVCONT .Q1H1M [facility] Stop: 04/26/22 10:45 Last Admin: 04/26/22 09:51 Dose: 999 mls/hr Documented By: KEDAR Ondansetron HCl (Ondansetron Hcl 4 Mg/2 Ml Vial) 4 mg IVPUSH QID PRN PRN Reason: Nausea Oxycodone HCl (Oxycodone Hcl Immed Release 5 Mg Tablet) 5 mg PO Q6H PRN PRN Reason: Pain, Moderate (Pain Scale 4-6 Sodium Chloride (0.9 % Sodium Chloride Flush 3 Ml Syringe) 3 ml IVFLUSH QSHIFT [facility] Last Admin: 04/26/22 09:25 Dose: Not Given Documented By: KEDAR Non-Admin Reason: IV Running Zolpidem Tartrate (Zolpidem Tartrate 5 Mg Tablet) 5 mg PO BEDTIME PRN PRN Reason: Insomnia Labs CBC & Chem 7: 04/25/22 20:18 04/25/22 20:18 Labs: Laboratory Results - last 24 hr 04/25/22 04/25/22 04/26/22 20:18 20:18 00:24 MCV 91.0 MCH 30.7 MCHC 33.7 RDW 12.4 Plt Count 304 MPV 9.5 Immature Gran % (Auto) 0.2 Neut % (Auto) 71.5 Lymph % (Auto) 20.3 [place] % (Auto) 6.0 Eos % (Auto) 1.3 Baso % (Auto) 0.7 Lymph # (Auto) 2.0 [place] # (Auto) 0.6 Eos # (Auto) 0.1 Baso # (Auto) 0.1 Abs Immat Gran (auto) 0.02 Absolute Neuts (auto) 7.0 Absolute Nucleated RBC 0.000 Nucleated RBC % (auto) 0.0 PT INR APTT Anion Gap 14 Estim Creat Clear Calc 57.4 Estimated GFR > 60 Random Glucose 98 Lactic Acid Calcium 9.6 Magnesium 1.7 Total Bilirubin 0.4 AST 24 ALT 14 Alkaline Phosphatase 85 Total Protein 7.3 Albumin 4.6 Lipase 50 Urine Color Yellow Urine Appearance Clear Urine pH 5.0 Ur Specific [place] 1.020 Urine Protein Negative Urine Glucose (UA) Negative Urine Ketones 15 Urine Blood Trace H Urine Nitrite Negative Ur Leukocyte Esterase Small (1+) H Urine RBC 0-2 Urine WBC 0-5 Ur Squamous Epith Cells 0-2 Urine Bacteria None Seen Hyaline Casts 0-2 COVID-19 ([facility]) COVID-19 Clin Com Blood Type Antibody Screen 04/26/22 04/26/22 04/26/22 02:12 02:12 02:12 MCV MCH MCHC RDW Plt Count MPV Immature Gran % (Auto) Neut % (Auto) Lymph % (Auto) [place] % (Auto) Eos % (Auto) Baso % (Auto) Lymph # (Auto) [place] # (Auto) Eos # (Auto) Baso # (Auto) Abs Immat Gran (auto) Absolute Neuts (auto) Absolute Nucleated RBC Nucleated RBC % (auto) PT 9.8 L INR 0.9 APTT 29.6 Anion Gap Estim Creat Clear Calc Estimated GFR Random Glucose Lactic Acid 0.8 Calcium Magnesium Total Bilirubin AST ALT Alkaline Phosphatase Total Protein Albumin Lipase Urine Color Urine Appearance Urine pH Ur Specific [place] Urine Protein Urine Glucose (UA) Urine Ketones Urine Blood Urine Nitrite Ur Leukocyte Esterase Urine RBC Urine WBC Ur Squamous Epith Cells Urine Bacteria Hyaline Casts COVID-19 ([facility]) Negative COVID-19 Clin Com See Note Blood Type Antibody Screen 04/26/22 02:28 MCV MCH MCHC RDW Plt Count MPV Immature Gran % (Auto) Neut % (Auto) Lymph % (Auto) [place] % (Auto) Eos % (Auto) Baso % (Auto) Lymph # (Auto) [place] # (Auto) Eos # (Auto) Baso # (Auto) Abs Immat Gran (auto) Absolute Neuts (auto) Absolute Nucleated RBC Nucleated RBC % (auto) PT INR APTT Anion Gap Estim Creat Clear Calc Estimated GFR Random Glucose Lactic Acid Calcium Magnesium Total Bilirubin AST ALT Alkaline Phosphatase Total Protein Albumin Lipase Urine Color Urine Appearance Urine pH Ur Specific [place] Urine Protein Urine Glucose (UA) Urine Ketones Urine Blood Urine Nitrite Ur Leukocyte Esterase Urine RBC Urine WBC Ur Squamous Epith Cells Urine Bacteria Hyaline Casts COVID-19 ([facility]) COVID-19 Clin Com Blood Type B Negative Antibody Screen NEGATIVE Assessment and Plan (1) Femoral hernia of right side with obstruction: Status: Acute Plan 61-year-old female presents to ER after coughing episode which produced right lower quadrant pain and palpable mass. CT of abdomen in emergency room demonstrated a right-sided femoral hernia with questionable obstruction. By Dr. Woodson: Scheduled for surgery this a.m. medical consult for same. Patient was relatively hypotensive in ER with systolic pressures in 80 to 90 range that responded to fluids (120/65) 1. Femoral hernia right side with obstruction (preop) -patient is a moderate but acceptable cardiovascular risk for planned procedure and can proceed as per Dr. Woodson. There are no medically prohibitive factors -will follow with you postop Time Spent With Patient Time: Total time managing care of this patient today ____ minutes. Quality Stroke Does the patient have a stroke diagnosis?: No VTE Prior VTE?: No VTE Risk Level:: Surgical - moderate VTE Device Contraindication: N/A - Device Ordered VTE Drug Contraindication: Treatment Not Indicated
--- NOTE | 2022-04-26 10:25 | P.CONAN_ITS ---
[facility] Active Problems Active Problems: All Active Problems (Updated 04/26/22 @ 02:00 by Enio Cain MD) Femoral hernia of right side with obstruction (Acute) Lumbar paraspinal muscle spasm (Acute) Sacroiliac joint pain (Acute) Past Medical History Medical History Alcohol abuse Family History Family history of problems with anesthesia: No Surgical History History of Problems with Anesthesia: No Social History Social History Alcohol intake: current Alcohol intake frequency: a few times a week Patient Tobacco Use Status: Current everyday Tobacco user Smoked in Last 30 Days: Yes Advance Directives: No Advance Directives Information Provided: No Patient : No Meds Allergies Allergy/AdvReac Type Severity Reaction Status Date / Time codeine [CODEINE] Allergy Unknown RASH Verified 03/23/21 10:58 Penicillins [PENICILLINS] Allergy Unknown RASH Verified 03/23/21 10:58 Active Medications: Current Medications Acetaminophen (Acetaminophen 325 Mg Tablet) 650 mg PO QID PRN PRN Reason: headache, temp > 101 Hydromorphone HCl (Hydromorphone Hcl 0.5 Mg/0.5 Ml Syringe) 0.5 mg IVPUSH Q3H PRN; Protocol PRN Reason: Pain, Severe (Pain Scale 7-10) Dextrose/Lactated Ringer's (D5lr) 1,000 mls @ 125 mls/hr IVCONT .Q8H [facility] Last Infusion: 04/26/22 07:24 Dose: 0 mls/hr Sodium Chloride (Ns) 1,000 mls @ 999 mls/hr IVCONT .Q1H1M [facility] Stop: 04/26/22 10:45 Last Admin: 04/26/22 09:51 Dose: 999 mls/hr Vancomycin HCl 1,000 mg/ (Sodium Chloride) 270 mls @ 270 mls/hr IV PREOP ONE Stop: 04/26/22 11:06 Ondansetron HCl (Ondansetron Hcl 4 Mg/2 Ml Vial) 4 mg IVPUSH QID PRN PRN Reason: Nausea Oxycodone HCl (Oxycodone Hcl Immed Release 5 Mg Tablet) 5 mg PO Q6H PRN PRN Reason: Pain, Moderate (Pain Scale 4-6 Sodium Chloride (0.9 % Sodium Chloride Flush 3 Ml Syringe) 3 ml IVFLUSH QSHIFT [facility] Last Admin: 04/26/22 09:25 Dose: Not Given Zolpidem Tartrate (Zolpidem Tartrate 5 Mg Tablet) 5 mg PO BEDTIME PRN PRN Reason: Insomnia Home Medications Medication Instructions Recorded Confirmed Last Taken Type ferrous sulfate 325 mg (65 mg 325 mg PO QWEEK PRN discomfort 04/26/22 04/26/22 Unknown History iron) tablet ibuprofen 200 mg tablet 400 mg PO BID pain 04/26/22 04/26/22 04/25/22 History ibuprofen 200 mg tablet 400 mg PO DAILY@1500 PRN Pain 04/26/22 04/26/22 Unknown History multivitamin 1 tab PO DAILY 04/26/22 04/26/22 Unknown History Exam Exam Date and Time: April 26, 2022 1025 Height,Weight and Vital Signs: Height 5 ft 2 in Weight 49.895 kg Last Vital Signs Temp 97.0 F 04/26/22 09:52 Pulse 59 04/26/22 09:52 Resp 18 04/26/22 09:52 BP 113/54 L 04/26/22 09:52 Pulse Ox 96 04/26/22 09:52 O2 Del Method 04/26/22 09:52 Pertinent Lab Results Pertinent Lab Results: Laboratory Tests 04/25/22 04/25/22 04/26/22 20:18 20:18 00:24 WBC 9.7 RBC 4.56 Hgb 14.0 Hct 41.5 MCV 91.0 MCH 30.7 MCHC 33.7 RDW 12.4 Plt Count 304 MPV 9.5 Immature Gran % (Auto) 0.2 Neut % (Auto) 71.5 Lymph % (Auto) 20.3 [place] % (Auto) 6.0 Eos % (Auto) 1.3 Baso % (Auto) 0.7 Lymph # (Auto) 2.0 [place] # (Auto) 0.6 Eos # (Auto) 0.1 Baso # (Auto) 0.1 Abs Immat Gran (auto) 0.02 Absolute Neuts (auto) 7.0 Absolute Nucleated RBC 0.000 Nucleated RBC % (auto) 0.0 PT INR APTT Sodium 139 Potassium 4.1 Chloride 103 Carbon Dioxide 26 Anion Gap 14 BUN 19 H Creatinine 0.80 Estim Creat Clear Calc 57.4 Estimated GFR > 60 Random Glucose 98 Lactic Acid Calcium 9.6 Magnesium 1.7 Total Bilirubin 0.4 AST 24 ALT 14 Alkaline Phosphatase 85 Total Protein 7.3 Albumin 4.6 Lipase 50 Urine Color Yellow Urine Appearance Clear Urine pH 5.0 Ur Specific [place] 1.020 Urine Protein Negative Urine Glucose (UA) Negative Urine Ketones 15 Urine Blood Trace H Urine Nitrite Negative Ur Leukocyte Esterase Small (1+) H Urine RBC 0-2 Urine WBC 0-5 Ur Squamous Epith Cells 0-2 Urine Bacteria None Seen Hyaline Casts 0-2 COVID-19 ([facility]) COVID-19 Clin Com Blood Type Antibody Screen 04/26/22 04/26/22 04/26/22 02:12 02:12 02:12 WBC RBC Hgb Hct MCV MCH MCHC RDW Plt Count MPV Immature Gran % (Auto) Neut % (Auto) Lymph % (Auto) [place] % (Auto) Eos % (Auto) Baso % (Auto) Lymph # (Auto) [place] # (Auto) Eos # (Auto) Baso # (Auto) Abs Immat Gran (auto) Absolute Neuts (auto) Absolute Nucleated RBC Nucleated RBC % (auto) PT 9.8 L INR 0.9 APTT 29.6 Sodium Potassium Chloride Carbon Dioxide Anion Gap BUN Creatinine Estim Creat Clear Calc Estimated GFR Random Glucose Lactic Acid 0.8 Calcium Magnesium Total Bilirubin AST ALT Alkaline Phosphatase Total Protein Albumin Lipase Urine Color Urine Appearance Urine pH Ur Specific [place] Urine Protein Urine Glucose (UA) Urine Ketones Urine Blood Urine Nitrite Ur Leukocyte Esterase Urine RBC Urine WBC Ur Squamous Epith Cells Urine Bacteria Hyaline Casts COVID-19 ([facility]) Negative COVID-19 Clin Com See Note Blood Type Antibody Screen 04/26/22 02:28 WBC RBC Hgb Hct MCV MCH MCHC RDW Plt Count MPV Immature Gran % (Auto) Neut % (Auto) Lymph % (Auto) [place] % (Auto) Eos % (Auto) Baso % (Auto) Lymph # (Auto) [place] # (Auto) Eos # (Auto) Baso # (Auto) Abs Immat Gran (auto) Absolute Neuts (auto) Absolute Nucleated RBC Nucleated RBC % (auto) PT INR APTT Sodium Potassium Chloride Carbon Dioxide Anion Gap BUN Creatinine Estim Creat Clear Calc Estimated GFR Random Glucose Lactic Acid Calcium Magnesium Total Bilirubin AST ALT Alkaline Phosphatase Total Protein Albumin Lipase Urine Color Urine Appearance Urine pH Ur Specific [place] Urine Protein Urine Glucose (UA) Urine Ketones Urine Blood Urine Nitrite Ur Leukocyte Esterase Urine RBC Urine WBC Ur Squamous Epith Cells Urine Bacteria Hyaline Casts COVID-19 ([facility]) COVID-19 Clin Com Blood Type B Negative Antibody Screen NEGATIVE Airway Mallampati Class: II TM Dist: >3cm Neck ROM: Full Loose/Missing/Broken Teeth: No Heart: rrr Lungs: clear Assessment and Plan Final Anesthetic Review Family History of Problems with Anesthesia: No History of Problems with Anesthesia: No NPO: Yes ASA Class: II and Emergency Final Preanesthetic Review: No Changes in Pt Med Stat, Meds/Allgs Chart Reviewed, Consent Obtained/Reviewed and Anes Risks/Benef Reviewed Patient Risk: Intermediate Procedure Risk: Low Anesthetic Plan Anesthetic Plan: GA Disposition: Standard PACU
[2022-04-26] MEDS: vancomycin HCL 1,000 MG in 0.9 % Sodium Chloride 250 ML 270 MG IV (10:36)
--- NOTE | 2022-04-26 10:43 | MHC.CM.PN ---
Attempted to meet with patient in regards to discharge planning. Patient transferred to Same Day Surgery. Will attempt to meet again. Continue to monitor for d/c needs.
--- NOTE | 2022-04-26 11:51 | W.PM.OPN ---
Operative Note Operative Note Date of Service: 04/26/22 Narrative: Preoperative diagnosis: Right femoral hernia, incarcerated Postoperative diagnosis: Right femoral hernia, incarcerated Procedure: Repair of right femoral hernia Surgeon: Tyron Woodson MD Denture Model Maker: Thais Carreon PA-C Anesthesia: General endotracheal Indications for procedure: 61-year-old female patient presenting to the emergency department with complaints of abdominal pain in the right groin found on examination to have palpable lump which is tender to palpation. Workup revealed a right femoral hernia by CT. Patient presents for repair of this right femoral hernia which is non reducible. Operative findings: Incarcerated right femoral hernia Specimen: None Estimated blood loss: 2 mL Complications: None Procedure details: Patient was brought to the OR and placed in a supine position. After administering general anesthesia the patient's abdomen was prepped with ChloraPrep and draped in a sterile fashion. A surgical time-out was called the consent confirmed. Patient received preoperative antibiotics and Venodyne boots were in place. Local anesthesia consisting of 0.5% Sensorcaine with epinephrine was then infiltrated over the inguinal ligament. Incision was then made with a scalpel carried out through subcutaneous tissue, past Marilee's fascia and up to the external oblique aponeurosis. Herniation was noted below the inguinal ligament consistent with a femoral hernia. The hernia sac was dissected free from the surrounding subcutaneous tissue. There was marked inflammation surrounding the hernia sac consistent with an acutely inflamed and incarcerated femoral hernia. The entrance of the sac into the femoral canal was then further mobilized. Inguinal canal was then opened by dividing the inguinal ligament. The sac was entered and the bowel examined. This was easily reduced into the abdominal cavity. The bowel was viable with no evidence of ischemia or perforation. The hernia sac and bowel was returned to the abdominal cavity. The repair was performed by reapproximating the inguinal canal to Andi's ligament using interrupted 1 Tycron sutures. Care was taken to assure adequate space for the passage of the femoral vein. A total of 3 sutures were placed to close the femoral empty space. The wounds were then irrigated with saline solution and suctioned dry. Marilee's fascia was then reapproximated using interrupted 3-0 Polysorb sutures. Dermis was reapproximated using interrupted 3-0 Polysorb sutures. Skin was closed using a running subcuticular 4-0 Polysorb suture. Steri-Strips, 2 x 2 gauze and Tegaderm were then applied. The patient tolerated the procedure well. Sponge, instrument, and needle counts reported as correct. She was transferred to PACU in stable condition.
[2022-04-26] MEDS: oxyCODONE HCl Immed Release 5 MG TABLET PO (11:59)
[2022-04-26] MEDS: Acetaminophen 1,000 MG/100 ML PIGGYBACK 400 MG IV (12:04)
== END 2022-04-26 13:35 | disposition home or self-care (01) ==
LOC: HO.ED 04-26 02:00 → HO.EDOVER 04-26 03:50 → HO.SSS 04-26 16:04
PROVIDERS: Physician Assistant; Emergency Provider Internal Medicine; Responsible Provider Hospitalist; Visit Provider Surgery
PROC: (CPT 49553; principal; 2022-04-26 10:20)
DX: K41.30 Unilateral femoral hernia, with obstruction, without gangrene, not specified as recurrent (principal); K56.609 Unspecified intestinal obstruction, unspecified as to partial versus complete obstruction; K57.11 Diverticulosis of small intestine without perforation or abscess with bleeding; J43.9 Emphysema, unspecified; F17.210 Nicotine dependence, cigarettes, uncomplicated; F10.10 Alcohol abuse, uncomplicated; Y90.9 Presence of alcohol in blood, level not specified; Z79.1 Long term (current) use of non-steroidal anti-inflammatories (NSAID); Z88.0 Allergy status to penicillin; Z88.8 Allergy status to other drugs, medicaments and biological substances; Z20.822 Contact with and (suspected) exposure to COVID-19
CPT/HCPCS: 49553; 36415; 71045; 74177; 76830; 76856; 80053; 81001; 83605; 83690; 83735; 85025; 85610; 85730; 86850; 86900; 86901; 87086; 87635; 93005; 93975; 96361; 96374; 96375; 99284; 99285; C9088; J0131; J0330; J1100; J2250; J2270; J2370; J2405; J3010; J3370; Q9967

== ENCOUNTER → 2022-05-04 15:34 | Outpatient (BNVA) | payer BC, SELFPAY | PROVIDERS: Visit Provider Surgery | DX: Z13.89 Encounter for screening for other disorder (principal) ==

== ENCOUNTER → 2022-06-06 10:03 | Outpatient (BNVA) | payer BC, SELFPAY | PROVIDERS: PCP Internal Medicine; Visit Provider Surgery | DX: Z13.89 Encounter for screening for other disorder (principal) ==

== ENCOUNTER 2023-01-26 11:37 | Outpatient (AMB) | payer BC, SELFPAY ==
--- NOTE | 2023-01-26 11:41 | A.OFFVIS_ITS ---
Intake Vital Signs 01/26/23 11:50 Height 5 ft 2 in Weight 113 lb 6 oz BMI 20.7 BP 158/72 H Blood Pressure Location Lt brachial Position Sitting Pulse 104 H Intake Visit Reasons: bulge, Hx R femoral hernia repair Intake Note: Patient is seen in office for follow up visit, hx of right femorjal hernia repair. 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 She previously underwent repair of the right femoral hernia without mesh as an emergent procedure on 04/26/2022. He initially did very well but now reports feeling a lump once again in the right groin which comes and goes. It seems to increase in size with coughing and laughing. She denies nausea, vomiting, diarrhea or constipation. She does feel pressure and light pain when lump increases in size and feels the hernia has recurred. [facility] Medical History Femoral hernia of right side with obstruction Alcohol abuse Surgical History History of femoral hernia repair (04/26/22) Social History Alcohol intake: current Alcohol intake frequency: 0-2 drinks per day Patient Tobacco Use Status: Current everyday Tobacco user Review of Systems Const All systems reviewed & are unremarkable except as noted in HPI and below GI Reports abdominal pain Physical Exam Vital Signs: Last Vital Signs Pulse 104 H 01/26/23 11:50 BP 158/72 H 01/26/23 11:50 BMI result Body Mass Index 20.7 Const General: cooperative Nutritional Appearance: well nourished Orientation/consciousness: patient oriented x3 Limitations: no limitations Resp Effort & Inspection: normal respiratory effort GI Other: Examination in the standing position with Valsalva maneuvers confirms a full hernia in the lower abdomen on the right side suggestive of a recurrent femoral hernia. The hernia is easily reducible with light pressure. No other hernias identified. Skin General skin exam: no rashes or lesions noted Neuro General: patient oriented x3 Extrem General: Yes no clubbing, cyanosis or edema Assessment & Plan Assessment & Plan (1) Femoral hernia: Code(s): K41.90 - Unilateral femoral hernia, without obstruction or gangrene, not specified as recurrent Plan 62-year-old female patient returning with a recurrent femoral hernia in the right groin. I recommended repair of the recurrent femoral hernia with mesh and after discussion of the procedure, risks, and alternatives, she consents to the surgery. Coding Level of Care Code Est Pt Level 4 (56713) Diagnoses Femoral hernia K41.90
[2023-01-26 11:50] VITALS: BP 158/72; PULSE 104; BMI 20.7
== END 2023-01-26 11:55 | disposition home or self-care (01) ==
PROVIDERS: PCP Internal Medicine; Visit Provider Surgery
DX: K41.90 Unilateral femoral hernia, without obstruction or gangrene, not specified as recurrent (principal)
CPT/HCPCS: 99214

== ENCOUNTER → 2023-01-26 11:37 | Outpatient (BNVA) | payer BC, SELFPAY | PROVIDERS: PCP Internal Medicine; Visit Provider Surgery ==

== ENCOUNTER 2023-02-07 05:58 | Day surgery (SDC) | payer BC, SELFPAY ==
[2023-02-07] VITALS (7 sets, daily range): BP systolic 105–141; BP diastolic 63–75; PULSE 70–109; RESP 16–20; TEMP 36.6–37; O2SAT 94–99; BMI 20.7
--- NOTE | 2023-02-07 07:13 | MHC.SHP ---
Pre-Procedural Eval Section A Date of Service: 02/07/23 The patient is an INPATIENT: No Changes since office visit: Yes Patient answered all questions; No Cold of Flu in the past 2 weeks, No New Medical Problems and No Changes in Medication The History & Physical has been completed within 30 days and I have reviewed it.: Yes Section B Chief Complaint: Unilateral femoral hernia, without obstruction or Allergies: Allergies Allergy/AdvReac Type Severity Reaction Status Date / Time codeine [CODEINE] Allergy Severe Itching Verified 02/07/23 06:10 Penicillins [PENICILLINS] Allergy Severe Anaphylaxis Verified 02/07/23 06:10 Plan Diagnosis/Plan: Unchanged I have reviewed the history and physical and performed a pertinent physical examination on my patient. No changes have occurred unless specified. Time Spent With Patient Time: Total time managing care of this patient today ____ minutes.
--- NOTE | 2023-02-07 07:15 | HO.ANESPROP2 ---
Documented by User: Nan Vogel NP 02/06/23 09:28 HPI - Anesthesia Eval Consult details Narrative: 62yo F for Right Repair Recurrent RT Femoral Hernia w/mesh s/p same 03/2022 with GA-ETT 7.5 PMFSH Active Problems Active Problems: All Active Problems (Updated 01/30/23 @ 08:40 by Tyron Woodson MD) Femoral hernia (Acute) Lumbar paraspinal muscle spasm (Acute) Sacroiliac joint pain (Acute) Past Medical History Medical History Femoral hernia of right side with obstruction Alcohol abuse Family History Family history of problems with anesthesia: No Surgical History Surgical History History of section History of femoral hernia repair (04/26/22) History of Problems with Anesthesia: No Social History Social History Alcohol intake: current Alcohol intake frequency: 0-2 drinks per day Patient Tobacco Use Status: Current everyday Tobacco user Tobacco use type: Cigarette Cigarettes Per Day: 3 Use of substances other than those prescribed or required for medical reasons: No Are you DNR?: No Advance Directives: No Advance Directives Information Provided: Yes Meds Allergies Allergy/AdvReac Type Severity Reaction Status Date / Time codeine [CODEINE] Allergy Severe Itching Verified 02/07/23 06:10 Penicillins [PENICILLINS] Allergy Severe Anaphylaxis Verified 02/07/23 06:10 Home Medications Medication Instructions Recorded Confirmed Last Taken Type ferrous sulfate 325 mg (65 mg 325 mg PO QWEEK PRN discomfort 04/26/22 02/07/23 Unknown History iron) tablet ibuprofen 200 mg tablet 400 mg PO BID PRN Pain 04/26/22 02/07/23 Unknown History multivitamin 1 tab PO DAILY 04/26/22 02/07/23 Unknown History Exam Exam Date and Time: February 06, [id number] Narrative Narrative: EKG 03/2022 Vent. Rate : 064 BPM Atrial Rate : 064 BPM P-R Int : 110 ms QRS Dur : 068 ms QT Int : 408 ms P-R-T Axes : 077 062 060 degrees QTc Int : 420 ms Sinus rhythm with short IL Otherwise normal ECG When compared with ECG of 05-AUG-2003 15:44, No significant change was found Assessment and Plan Assessment Anesthesia Assessment: Chart Reviewed Final Anesthetic Review Family History of Problems with Anesthesia: No History of Problems with Anesthesia: No Documented by User: Kerry Pack DO 02/07/23 07:18 HPI - Anesthesia Eval Consult details Narrative: 62yo F for Right Repair Recurrent RT Femoral Hernia w/mesh s/p same 03/2022 with GA-ETT 7.5 Smoker. History of alcohol abuse in the past but only social alcohol use now. [facility] Past Medical History Medical History Femoral hernia of right side with obstruction Alcohol abuse Family History Family history of problems with anesthesia: No Surgical History Surgical History History of section History of femoral hernia repair (04/26/22) History of Problems with Anesthesia: No Social History Social History Alcohol intake: current Alcohol intake frequency: 0-2 drinks per day Patient Tobacco Use Status: Current everyday Tobacco user Tobacco use type: Cigarette Cigarettes Per Day: 3 Use of substances other than those prescribed or required for medical reasons: No Are you DNR?: No Advance Directives: No Advance Directives Information Provided: Yes Meds Allergies Allergy/AdvReac Type Severity Reaction Status Date / Time codeine [CODEINE] Allergy Severe Itching Verified 02/07/23 06:10 Penicillins [PENICILLINS] Allergy Severe Anaphylaxis Verified 02/07/23 06:10 Home Medications Medication Instructions Recorded Confirmed Last Taken Type ferrous sulfate 325 mg (65 mg 325 mg PO QWEEK PRN discomfort 04/26/22 02/07/23 Unknown History iron) tablet ibuprofen 200 mg tablet 400 mg PO BID PRN Pain 04/26/22 02/07/23 Unknown History multivitamin 1 tab PO DAILY 04/26/22 02/07/23 Unknown History Exam Exam Date and Time: February 07, 2023 0715 Height,Weight and Vital Signs: Vital Signs Temperature 97.9 F 02/07/23 06:29 Pulse Rate 70 02/07/23 06:29 Respiratory Rate 16 02/07/23 06:29 Blood Pressure 105/63 02/07/23 06:29 Pulse Oximetry 96 02/07/23 06:29 Oxygen Delivery Method Room Air 02/07/23 06:29 Temperature 97.9 F 02/07/23 06:29 Pulse Rate 70 02/07/23 06:29 Respiratory Rate 16 02/07/23 06:29 Blood Pressure 105/63 02/07/23 06:29 Pulse Oximetry 96 02/07/23 06:29 Oxygen Delivery Method Room Air 02/07/23 06:29 Height 5 ft 2 in Weight 51.426 kg Airway Mallampati Class: II TM Dist: >3cm Neck ROM: Full Loose/Missing/Broken Teeth: No Heart: S1S2 Lungs: CTAB Assessment and Plan Assessment Anesthesia Assessment: Anesthesia Plan Discussed and Chart Reviewed Final Anesthetic Review Family History of Problems with Anesthesia: No History of Problems with Anesthesia: No NPO: Yes ASA Class: II Final Preanesthetic Review: No Changes in Pt Med Stat, Meds/Allgs Chart Reviewed, Consent Obtained/Reviewed and Anes Risks/Benef Reviewed Patient Risk: Low Procedure Risk: Low Anesthetic Plan Anesthetic Plan: GA and Agree w/ Assess. and Plan Disposition: Standard PACU
--- NOTE | 2023-02-07 08:57 | W.PM.OPN ---
Operative Note Operative Note Date of Service: 02/07/23 Narrative: Preoperative diagnosis: Recurrent right femoral hernia Postoperative diagnosis: same Procedure: repair of recurrent right femoral hernia with mesh Surgeon: Tyron Woodson MD Automation Machine Operator: Thais Carreon PA-C Anesthesia: general LMA Indications for procedure: 62-year-old female patient presenting with a previous history of a incarcerated right femoral hernia previously repaired without mesh in March 2022 now presenting with a recurrent right femoral hernia. Operative findings: Recurrent right femoral hernia Specimen: hernia sac Estimated blood loss: 10 mL Complications: none Procedure details: patient was brought to the OR placed in a supine position. After administering general anesthesia patient's abdomen was prepped with ChloraPrep and draped in a sterile fashion. A surgical time-out was called the consent confirmed. Patient received preoperative antibiotics and Venodyne boots were in place. Local anesthesia consisting of 0.5% Sensorcaine was infiltrated over the right inguinal ligament. Incision was then made over the right inguinal ligament carried out through subcutaneous tissue, past Marilee's fashion up to the external oblique aponeurosis. Scar tissue was noted from the previous exploration. Local anesthesia was infiltrated below the external oblique aponeurosis. This was then incised with scalpel wide with the Metzenbaum scissors. Fibers of the internal leak and transversalis aponeurosis were then entered between clamps. The preperitoneal space was then identified. The hernia sac was reduced and a preperitoneal space created using an open Ray-Annette sponge. Hernia sac was noted to be covering the Andi's ligament. Dissection from a low revealed a large hernia sac which was dissected circumferentially and reduced into the preperitoneal space. A portion of the sac was excised and the sac closed using a running 3-0 Polysorb suture. Once the sac was reduced into the abdominal cavity the Andi's ligament was better exposed. A medium PHS mesh was then obtained. The circular underlay was then secured to the Andi's ligament using a 0 Polysorb suture. A circular underlay was deployed into the preperitoneal space and the overlay secured to the pubic tubercle, conjoined tendon, and shelving edge of the inguinal ligament using 0 Polysorb sutures. A large defect was noted at the femoral space and this was filled using a large plug and secured using the 0 Polysorb suture the Andi's ligament and shelving edge of the inguinal ligament. Wounds were then irrigated with saline solution and suctioned dry. External oblique aponeurosis was then closed using a running 2-0 Polysorb suture. 8 mL of Zenrelef was then infiltrated below the fascia. Marilee's fascia and dermis were then reapproximated using interrupted 3-0 Polysorb sutures. Skin was closed using a running subcuticular 4-0 Polysorb suture. Steri-Strips, 2 x 2 gauze and Tegaderm were then applied. The patient tolerated the procedure well. She was transferred to PACU in stable condition. Sponge, instrument, and needle counts reported as correct.
== END 2023-02-07 10:49 | disposition home or self-care (01) ==
PROVIDERS: PCP Internal Medicine; Visit Provider Surgery
PROC: (CPT 49550; principal; 2023-02-07 07:30)
DX: K41.91 Unilateral femoral hernia, without obstruction or gangrene, recurrent (principal); F10.10 Alcohol abuse, uncomplicated; Z79.1 Long term (current) use of non-steroidal anti-inflammatories (NSAID); Z79.899 Other long term (current) drug therapy; Z88.0 Allergy status to penicillin; Z88.5 Allergy status to narcotic agent; Z98.890 Other specified postprocedural states; F17.210 Nicotine dependence, cigarettes, uncomplicated
CPT/HCPCS: 49555; 88302; C1781; C9088; J0690; J1100; J2405; J3010; J3370

== ENCOUNTER → 2023-02-07 05:58 | Outpatient (BNV) | payer BC, SELFPAY | PROVIDERS: PCP Internal Medicine; Visit Provider Surgery | DX: K41.91 Unilateral femoral hernia, without obstruction or gangrene, recurrent (principal) | CPT/HCPCS: 49615 ==

== ENCOUNTER 2023-02-22 14:07 | Outpatient (AMB) | payer BC, SELFPAY ==
--- NOTE | 2023-02-22 14:08 | A.OFFVIS_ITS ---
Intake Vital Signs 02/22/23 14:15 Height 5 ft 2 in Weight 113 lb BMI 20.7 BP 139/62 Blood Pressure Location Lt brachial Position Sitting Pulse 73 Intake Visit Reasons: S/P repair recurrent right femoral hernia Intake Note: Patient is seen in office for post op assessment post right femoral hernia repair. Patient c/o: denies any concerns at the time of visit Stars Coordinator Required: No Accompanied by: Self / Same As Patient Allergies codeine [CODEINE] Allergy (Severe, Verified 02/22/23 14:16) Itching Penicillins [PENICILLINS] Allergy (Severe, Verified 02/22/23 14:16) Anaphylaxis HPI HPI Comments History of Present Illness Details 62-year-old female patient returning 2 w eeks following repair of a recurrent femoral hernia. This repaired using both a PHS mesh and a plug. She reports sharp stabbing pain for the 1st several days after the surgery but this has gradually improved. She also noted some ecchymosis in the skin below the incision which has also improved. She feels much improved now with decreased pain is able to return to work. She no longer feels the hernia lump. She is eating well and denies any bowel changes. [facility] Medical History Femoral hernia of right side with obstruction Alcohol abuse Surgical History History of section History of femoral hernia repair Social History Alcohol intake: current Alcohol intake frequency: 0-2 drinks per day Patient Tobacco Use Status: Current everyday Tobacco user Tobacco use type: Cigarette Cigarettes Per Day: 3 Physical Exam Vital Signs: Last Vital Signs Pulse 73 02/22/23 14:15 BP 139/62 02/22/23 14:15 BMI result Body Mass Index 20.7 Const General: healthy appearing and comfortable Nutritional Appearance: well nourished Orientation/consciousness: patient oriented x3 Limitations: no limitations Resp Effort & Inspection: normal respiratory effort, no audible wheezes, no cough and no respiratory distress GI Other: Incision in the right groin is clean, dry, and intact. No palpable hematoma or seroma is noted. No hernias noted with Valsalva maneuvers. Neuro General: patient oriented x3 Extrem General: Yes no clubbing, cyanosis or edema Assessment & Plan Assessment & Plan (1) Femoral hernia: Code(s): K41.90 - Unilateral femoral hernia, without obstruction or gangrene, not specified as recurrent Qualifiers: Obstruction and gangrene presence: without obstruction or gangrene Laterality: unilateral Recurrence: recurrent Qualified Code(s): K41.91 - Unilateral femoral hernia, without obstruction or gangrene, recurrent Plan Patient returns 2 weeks following repair of a recurrent right femoral hernia. Her wounds are healing nicely and there is no evidence of recurrent hernia at this time. Recommended continued restricted lifting (10 lb). She should return in 1 month for follow-up examination. Coding Level of Care Code Global (06900) Diagnoses Unilateral recurrent femoral hernia without obstruction or gangrene K41.91 Obstruction and gangrene presence: without obstruction or gangrene Laterality: unilateral Recurrence: recurrent
[2023-02-22 14:15] VITALS: BP 139/62; PULSE 73; BMI 20.7
== END 2023-02-22 14:20 | disposition home or self-care (01) ==
PROVIDERS: PCP Internal Medicine; Visit Provider Surgery
DX: K41.91 Unilateral femoral hernia, without obstruction or gangrene, recurrent (principal); Z09 Encounter for follow-up examination after completed treatment for conditions other than malignant neoplasm
CPT/HCPCS: 99212

== ENCOUNTER → 2023-02-22 14:07 | Outpatient (BNVA) | payer BC, SELFPAY | PROVIDERS: PCP Internal Medicine; Visit Provider Surgery ==

== ENCOUNTER 2023-03-30 10:41 | Outpatient (AMB) | payer BC, SELFPAY ==
--- NOTE | 2023-03-30 10:45 | A.OFFVIS_ITS ---
Intake Vital Signs 03/30/23 10:49 Height 5 ft 2 in Weight 114 lb BMI 20.8 BP 123/61 Blood Pressure Location Lt brachial Position Sitting Pulse 81 Intake Visit Reasons: 1 mth follow up repair recur right femoral hernia Intake Note: Patient is seen in office for one month follow up visit, post right femoral hernia repair. 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 She feels great and denies any further incisional pain, redness or swelling. She feels ready to return to normal activity. [facility] Medical History Femoral hernia of right side with obstruction Alcohol abuse Surgical History History of section History of femoral hernia repair Social History Alcohol intake: current Alcohol intake frequency: 0-2 drinks per day Patient Tobacco Use Status: Current everyday Tobacco user Tobacco use type: Cigarette Cigarettes Per Day: 3 Physical Exam Const General: no acute distress Nutritional Appearance: average body habitus Resp Effort & Inspection: normal respiratory effort GI Other: Incision in the right femoral region is clean, dry, and intact. No redness or discharge is appreciated. No hernias are appreciated with Valsalva maneuvers. Extrem Other: No edema Assessment & Plan Assessment & Plan (1) Femoral hernia: Code(s): K41.90 - Unilateral femoral hernia, without obstruction or gangrene, not specified as recurrent Qualifiers: Obstruction and gangrene presence: without obstruction or gangrene Laterality: unilateral Recurrence: recurrent Qualified Code(s): K41.91 - Unilateral femoral hernia, without obstruction or gangrene, recurrent Plan 62-year-old female patient status post repair of a recurrent femoral hernia with mesh. She tolerated the procedure well and her wounds are healing nicely. There is no evidence of recurrent hernia at this time. She may return to normal activity without restrictions. Coding Level of Care Code Global (10213) Diagnoses Unilateral recurrent femoral hernia without obstruction or gangrene K41.91 Obstruction and gangrene presence: without obstruction or gangrene Laterality: unilateral Recurrence: recurrent
[2023-03-30 10:49] VITALS: BP 123/61; PULSE 81; BMI 20.8
== END 2023-03-30 11:34 | disposition home or self-care (01) ==
PROVIDERS: PCP Internal Medicine; Visit Provider Surgery
DX: K41.91 Unilateral femoral hernia, without obstruction or gangrene, recurrent (principal)
CPT/HCPCS: 99212

== ENCOUNTER → 2023-03-30 10:41 | Outpatient (BNVA) | payer BC, SELFPAY | PROVIDERS: PCP Internal Medicine; Visit Provider Surgery ==